=== PATIENT | female | born 1990 | race Hispanic/Latino ===

== ENCOUNTER 2017-10-23 10:09 | Observation (INO) | payer MEDICAID ==
[2017-10-23 10:57] LABS: APPEARANCE,URINE Cloudy (CLEAR); BILIRUBIN,URINE Small (NEGATIVE); COLOR,URINE Dark Yellow (YELLOW); GLUCOSE, URINE (UA) Negative (NEGATIVE); KETONES,URINE Trace mg/dL (NEGATIVE); LEUKOCYTE ESTERASE ,URINE Moderate (NEGATIVE); NITRATE,URINE Negative (NEGATIVE); OCCULT BLOOD,URINE Negative (NEGATIVE); PH,URINE 5.5 (5.0-8.0); PROTEIN,URINE Trace (NEGATIVE)
[2017-10-23 11:06] LABS: BACTERIA,URINE Few /HPF (None Seen); RBC,URINE 0-1 /HPF (0-1); SQUAMOUS EPITHELIAL CELL,UR Moderate /LPF (0-2); WBC,URINE 0-1 /HPF (0-1)
== END 2017-10-23 11:50 | disposition home or self-care (01) ==
LOC: EDH 10:09 → LDH 10:10
PROVIDERS: ADMIT Obstetrics & Gynecology; ATTEND Obstetrics & Gynecology
DX: O26.893 Other specified pregnancy related conditions, third trimester (principal); M54.5 Low back pain; O10.913 Unspecified pre-existing hypertension complicating pregnancy, third trimester; Z3A.36 36 weeks gestation of pregnancy
CPT/HCPCS: 81001; 99285; G0378 ×2

== ENCOUNTER 2018-01-30 08:55 | Emergency (ER) | payer MEDICAID, OTHER ==
[2018-01-30 09:31] LABS: APPEARANCE,URINE Cloudy (CLEAR); BILIRUBIN,URINE Small (NEGATIVE); COLOR,URINE Dark Yellow (YELLOW); GLUCOSE, URINE (UA) Negative (NEGATIVE); KETONES,URINE Trace mg/dL (NEGATIVE); LEUKOCYTE ESTERASE ,URINE Small (NEGATIVE); NITRATE,URINE Negative (NEGATIVE); OCCULT BLOOD,URINE Negative (NEGATIVE); PROTEIN,URINE Trace (NEGATIVE)
[2018-01-30] MEDS ORDERED: ONDANSETRON HCL 4 MG/2 ML VIAL ONE (09:31)
[2018-01-30] MEDS ORDERED: KETOROLAC TROMETHAMINE 30MG/ML ONE (09:31)
[2018-01-30] MEDS ORDERED: HYOSCYAMINE SULFATE 0.125 MG TAB.SUBL SL ONE (09:31)
[2018-01-30 09:41] LABS: CREATININE 0.9 mg/dL (0.5-1.5); POTASSIUM 4.1 mmol/L (3.5-5.1)
[2018-01-30 09:45] LABS: ALBUMIN 3.6 g/dL (3.5-5.0); BILIRUBIN,TOTAL 0.6 mg/dL (0.2-1.0); TOTAL PROTEIN, SERUM 7.3 g/dL (6.0-8.3)
[2018-01-30 09:47] LABS: HCG,QUAL RESULT NEGATIVE (NEGATIVE)
[2018-01-30 09:49] LABS: BASOPHILS % (AUTO) 0.6 % (0.0-5.0); EOSINOPHILS % (AUTO) 1.1 % (0.0-8.0); HEMATOCRIT 34.5 % (36-48); LYMPHOCYTES % (AUTO) 11.5 % (21.0-51.0); MEAN CORPUSCULAR HEMOGLOBIN 26.5 pg (27.0-33.0); MEAN CORPUSCULAR VOLUME 80.3 fL (79-99); NEUTROPHILS % (AUTO) 82.8 % (40.0-77.0); PLATELET COUNT (AUTO) 226 K/uL (130-400); RED CELL DISTRIBUTION WIDTH 14.4 % (11.0-15.5)
[2018-01-30 09:53] LABS: RBC,URINE None Seen /HPF (0-1)
[2018-01-30 09:56] LABS: BACTERIA,URINE Few /HPF (None Seen); SQUAMOUS EPITHELIAL CELL,UR Moderate /HPF (0-2)
[2018-01-30 09:58] LABS: MUCUS,URINE Rare LPF (None Seen)
== END 2018-01-30 10:09 | disposition home or self-care (01) ==
LOC: EDH 08:55
DX: N30.00 Acute cystitis without hematuria (principal); K80.80 Other cholelithiasis without obstruction; I10 Essential (primary) hypertension; Z91.040 Latex allergy status
CPT/HCPCS: 36415; 76705; 80053; 81001; 81025; 83690; 85025; 87088; 96374; 96375; 99285; J1885; J2405

== ENCOUNTER 2018-05-26 00:31 | Emergency (ER) | payer OTHER ==
[2018-05-26] MEDS ORDERED: DIPHENHYDRAMINE HCL 25 MG CAPSULE ONE (00:53)
[2018-05-26] MEDS ORDERED: NAPROXEN 250 MG TAB ONE (00:54)
== END 2018-05-26 01:25 | disposition home or self-care (01) ==
LOC: EDH 00:31
DX: T63.441A Toxic effect of venom of bees, accidental (unintentional), initial encounter (principal); I10 Essential (primary) hypertension; Z91.041 Radiographic dye allergy status; Z79.899 Other long term (current) drug therapy; Z98.890 Other specified postprocedural states; Y92.89 Other specified places as the place of occurrence of the external cause
CPT/HCPCS: 99283; Q0163

== ENCOUNTER 2020-01-22 21:12 | Emergency (ER) | payer SELFPAY ==
[2020-01-22] MEDS ORDERED: SODIUM CHLORIDE 0.9% 1000ML 1,000 ML IV ONE (21:38)
[2020-01-22 21:55] LABS: BASOPHILS % (AUTO) 0.5 % (0.0-5.0); EOSINOPHILS % (AUTO) 3.6 % (0.0-8.0); HEMATOCRIT 29.8 % (36-48); LYMPHOCYTES % (AUTO) 33.5 % (21.0-51.0); MEAN CORPUSCULAR HEMOGLOBIN 19.5 pg (27.0-33.0); MEAN CORPUSCULAR HGB CONC 28.2 g/dL (32.0-36.0); MEAN CORPUSCULAR VOLUME 69.3 fL (79-99); MONOCYTES % (AUTO) 3.9 % (3.0-13.0); NEUTROPHILS % (AUTO) 58.1 % (40.0-77.0); PLATELET COUNT (AUTO) 274 K/uL (130-400); RED CELL DISTRIBUTION WIDTH 19.9 % (11.0-15.5); WHITE BLOOD COUNT (AUTO) 8.1 K/uL (4.8-10.8)
[2020-01-22] MEDS ORDERED: ONDANSETRON HCL 4 MG/2 ML VIAL ONE (22:07)
[2020-01-22] MEDS ORDERED: KETOROLAC TROMETHAMINE 30MG/ML ONE (22:07)
[2020-01-22 22:13] LABS: POTASSIUM 3.6 mmol/L (3.5-5.1)
[2020-01-22 22:30] LABS: ALBUMIN 3.8 g/dL (3.5-5.0); BILIRUBIN,TOTAL 0.3 mg/dL (0.2-1.0); TOTAL PROTEIN, SERUM 7.4 g/dL (6.0-8.3)
== END 2020-01-23 00:07 | disposition home or self-care (01) ==
LOC: EDH 21:12
DX: K80.80 Other cholelithiasis without obstruction (principal); R10.11 Right upper quadrant pain; I10 Essential (primary) hypertension; Z91.040 Latex allergy status; Z98.890 Other specified postprocedural states
CPT/HCPCS: 36415; 76705; 80053; 82550; 83690; 84484; 84702; 85025; 93005; 96374; 96375; 99285; J1885; J2405; J7030

== ENCOUNTER 2020-06-07 02:03 | Emergency (ER) | payer OTHER ==
[2020-06-07] MEDS ORDERED: SODIUM CHLORIDE 0.9% 1000ML 1,000 ML IV ONE (02:04)
[2020-06-07] MEDS ORDERED: PANTOPRAZOLE 40 MG/VIAL IVP ONE (02:04)
[2020-06-07] MEDS ORDERED: ONDANSETRON HCL 4 MG/2 ML VIAL ONE (02:44)
[2020-06-07] MEDS ORDERED: FAMOTIDINE/PF 20 MG/2 ML VIAL IV ONE (02:44)
[2020-06-07 02:57] LABS: BASOPHILS % (AUTO) 0.7 % (0.0-5.0); EOSINOPHILS % (AUTO) 2.6 % (0.0-8.0); HEMATOCRIT 28.5 % (36-48); LYMPHOCYTES % (AUTO) 20.8 % (21.0-51.0); MEAN CORPUSCULAR HEMOGLOBIN 19.7 pg (27.0-33.0); MEAN CORPUSCULAR HGB CONC 28.8 g/dL (32.0-36.0); MEAN CORPUSCULAR VOLUME 68.3 fL (79-99); MONOCYTES % (AUTO) 5.8 % (3.0-13.0); NEUTROPHILS % (AUTO) 69.8 % (40.0-77.0); PLATELET COUNT (AUTO) 219 K/uL (130-400); RED BLOOD CELL COUNT(AUTO) 4.17 MIL/uL (4.00-5.50); RED CELL DISTRIBUTION WIDTH 18.6 % (11.0-15.5); WHITE BLOOD COUNT (AUTO) 5.9 K/uL (4.8-10.8)
[2020-06-07 02:59] LABS: APPEARANCE,URINE SL CLOUDY (CLEAR); BILIRUBIN,URINE SMALL (NEGATIVE); COLOR,URINE YELLOW (YELLOW); GLUCOSE, URINE (UA) NEGATIVE (NEGATIVE); KETONES,URINE NEGATIVE (NEGATIVE); LEUKOCYTE ESTERASE ,URINE NEGATIVE (NEGATIVE); NITRATE,URINE NEGATIVE (NEGATIVE); OCCULT BLOOD,URINE NEGATIVE (NEGATIVE); PH,URINE 5.5 (5.0-8.0); PROTEIN,URINE TRACE mg/dL (NEGATIVE)
[2020-06-07 03:01] LABS: BACTERIA,URINE None Seen /HPF (None Seen); MUCUS,URINE Rare LPF (None Seen); RBC,URINE None Seen /HPF (0-1); SQUAMOUS EPITHELIAL CELL,UR Moderate /HPF (0-2); WBC,URINE None Seen /HPF (0-1)
[2020-06-07 03:02] LABS: HCG,QUAL RESULT NEGATIVE (NEGATIVE)
[2020-06-07 03:14] LABS: CREATININE 0.9 mg/dL (0.5-1.5)
[2020-06-07 03:19] LABS: ALBUMIN 3.7 g/dL (3.5-5.0); BILIRUBIN,TOTAL 0.3 mg/dL (0.2-1.0); TOTAL PROTEIN, SERUM 7.1 g/dL (6.0-8.3)
[2020-06-07 03:44] LABS: INR 0.92 (0.85-1.15); PARTIAL THROMBOPLASTIN TIME 25.7 SEC (26.3-35.5)
== END 2020-06-07 04:31 | disposition home or self-care (01) ==
LOC: EDH 02:03
DX: K80.20 Calculus of gallbladder without cholecystitis without obstruction (principal); I10 Essential (primary) hypertension; Z79.899 Other long term (current) drug therapy; Z91.040 Latex allergy status
CPT/HCPCS: 36415; 76705; 80053; 81001; 81025; 83690; 85025; 85610; 85730; 96361; 96374; 96375; 99284; C9113; J2405; J3490; J7030

== ENCOUNTER 2022-02-05 03:18 | Emergency (ER) | payer BC, OTHER ==
[~2022-02-05] VITALS: Ht 154.9 cm; Wt 163.3 kg
[2022-02-05 03:43] LABS: APPEARANCE,URINE CLEAR (CLEAR); BILIRUBIN,URINE NEGATIVE (NEGATIVE); COLOR,URINE YELLOW (YELLOW); GLUCOSE, URINE (UA) NEGATIVE (NEGATIVE); KETONES,URINE NEGATIVE (NEGATIVE); LEUKOCYTE ESTERASE ,URINE LARGE (NEGATIVE); NITRATE,URINE NEGATIVE (NEGATIVE); OCCULT BLOOD,URINE NEGATIVE (NEGATIVE); PROTEIN,URINE NEGATIVE (NEGATIVE); UROBILINOGEN,URINE 0.2 mg/dL (0.2-1.0)
[2022-02-05 03:43] LABS: BASOPHILS % (AUTO) 0.5 % (0.0-5.0); EOSINOPHILS % (AUTO) 3.7 % (0.0-8.0); HEMATOCRIT 25.4 % (36-48); LYMPHOCYTES % (AUTO) 20.3 % (21.0-51.0); MEAN CORPUSCULAR HEMOGLOBIN 17.3 pg (27.0-33.0); MEAN CORPUSCULAR HGB CONC 27.6 g/dL (32.0-36.0); MEAN CORPUSCULAR VOLUME 62.9 fL (79-99); NEUTROPHILS % (AUTO) 69.2 % (40.0-77.0); PLATELET COUNT (AUTO) 300 K/uL (130-400); RED BLOOD CELL COUNT(AUTO) 4.04 MIL/uL (4.00-5.50); RED CELL DISTRIBUTION WIDTH 21.5 % (11.0-15.5)
[2022-02-05 03:56] LABS: BACTERIA,URINE Few /HPF (None Seen); RBC,URINE None Seen /HPF (0-1); SQUAMOUS EPITHELIAL CELL,UR Few /HPF (0-2)
[2022-02-05 03:58] LABS: POTASSIUM 3.4 mmol/L (3.5-5.1)
[2022-02-05 04:08] LABS: ALBUMIN 3.8 g/dL (3.5-5.0); BILIRUBIN,TOTAL 0.3 mg/dL (0.2-1.0); TOTAL PROTEIN, SERUM 7.6 g/dL (6.0-8.3)
[2022-02-05] MEDS ORDERED: CEFTRIAXONE 1G VIAL IVP ONE (04:30)
[2022-02-05] MEDS ORDERED: KETOROLAC 15MG/ML VIAL (15MG/ML) IV ONE (04:30)
[2022-02-05] MEDS ORDERED: 0.9% NACL 500ML IV.SOLN 500 ML IV ONE (04:30)
[2022-02-05] MEDS ORDERED: CEFD300C3 PO (04:31)
[2022-02-05] MEDS ORDERED: ACET-2079 PO (04:31)
[2022-02-05] MEDS ORDERED: ONDANSETRON 4MG INJ IVP ONE (05:00)
[2022-02-05] MEDS ORDERED: MORPHINE 4 MG SYG IVP ONE (05:00)
[2022-02-05] MEDS ORDERED: IOHEXOL-350 75 ML VIAL IV ONE (05:08)
[2022-02-05] MEDS ORDERED: MAGNESIUM CITRATE 296 ML SOLUTION PO ONE (06:00)
[2022-02-05 06:20] VITALS: BP 143/79
== END 2022-02-05 06:45 | disposition home or self-care (01) ==
LOC: EDH 03:18
DX: N39.0 Urinary tract infection, site not specified (principal); D64.9 Anemia, unspecified; E05.90 Thyrotoxicosis, unspecified without thyrotoxic crisis or storm; I10 Essential (primary) hypertension; Z90.49 Acquired absence of other specified parts of digestive tract; Z98.890 Other specified postprocedural states
CPT/HCPCS: 36415; 73562; 74177; 80053; 81001; 83690; 84702; 85025; 87088; 96374; 96375; 99285; J0696; J1885; J2270; J2405; J7040; Q9967